=== PATIENT | female | born 1965 | race Caucasian/White ===

== ENCOUNTER 2017-12-17 15:59 | Outpatient (CLI) | payer OTHER ==
--- NOTE | 2017-12-17 18:05 | RAD ---
LEFT KNEE FOUR VIEWS: History: Fall last week, left knee pain. FINDINGS: There are degenerative changes in the knee with spurring from the condyles and patella. There is a mo derate sized joint effusion. There is irregularity of the lateral tibial plateau which is suspicious for lateral tibial plateau fr acture. IMPRESSION: 1. Question fracture of the lateral tibial plateau only seen on lateral view. There is associated jacoby nt effusion. Fracture is not confirmed and these changes may be due to the hypertrophic spurring note d, however, a fracture cannot be excluded. If there is clinical concern of fracture recommend further evaluation with either CT or MRI for confirmation. 2. Dr. Winkler is being paged for notification. Code T POS: BLANE
== END 2017-12-17 16:00 | disposition home or self-care (01) ==
LOC: SCSRAD 15:59
PROVIDERS: ATTEND Family Medicine
DX: M25.562 Pain in left knee (principal); M25.462 Effusion, left knee

== ENCOUNTER 2017-12-21 07:41 | Outpatient (CLI) | payer OTHER | END 2017-12-21 07:42 | disposition home or self-care (01) | LOC: BICCT 07:41 | PROVIDERS: ATTEND Family Medicine | DX: M25.562 Pain in left knee (principal); M17.12 Unilateral primary osteoarthritis, left knee ==